=== PATIENT | male | born 1990 | race Two or more races ===

== ENCOUNTER 2018-11-09 07:48 | Observation (INO) | payer SELFPAY ==
[~2018-11-09] VITALS: Ht 170.2 cm; Wt 66.7 kg
[2018-11-09] MEDS ORDERED: ONDANSETRON 2MG/ML, 2ML ONE ×2 (08:24→14:38)
[2018-11-09] MEDS ORDERED: MORPHINE SULFATE 4 MG/ML, 1ML ONE (08:24)
[2018-11-09] MEDS ORDERED: SODIUM CHLORIDE FLUSH 10ML SYR IVF ONE (08:30)
[2018-11-09] MEDS ORDERED: MORPHINE SULFATE 4 MG/ML, 1ML IVPush PRN (08:30)
[2018-11-09] MEDS ORDERED: ONDANSETRON 2MG/ML, 2ML IVPush ONE (08:30)
[2018-11-09 08:36] LABS: BASOPHILS # (AUTO) 0.02 x10^3/uL (0-0.1); BASOPHILS % (AUTO) 0 % (0-1); EOSINOPHILS # (AUTO) 0.12 x10^3/uL (0-0.4); EOSINOPHILS % (AUTO) 2 % (1-7); LYMPHOCYTES # (AUTO) 1.63 x10^3/uL (1-3.4); LYMPHOCYTES % (AUTO) 27 % (22-44); MD NO; MEAN CORPUSCULAR HEMOGLOBIN 30.1 pg (27.5-34.5); MEAN CORPUSCULAR HGB CONC 34.1 g/dL (33.2-36.2); MEAN CORPUSCULAR VOLUME 88.3 fL (81-97); MEAN PLATELET VOLUME 10.3 fL (7.4-10.4); MONOCYTES # (AUTO) 0.31 x10^3/uL (0.2-0.8); MONOCYTES % (AUTO) 5 % (2-9); NEUTROPHILS # (AUTO) 4.05 x10^3/uL (1.8-6.8); NEUTROPHILS % (AUTO) 66 % (42-75); PLATELET COUNT 204 x10^3/uL (130-400); RED BLOOD COUNT 5.07 x10^6/uL (4.38-5.82); RED CELL DISTRIBUTION WIDTH 12.3 % (9.4-14.8)
[2018-11-09 08:47] LABS: ALANINE AMINOTRANSFERASE 28 U/L (12-78); ALBUMIN 4.4 g/dL (3.4-5.0); ANION GAP 7 mmol/L (5-15); CALCIUM 8.7 mg/dL (8.5-10.1); CHLORIDE 110 mmol/L (98-107); CREATININE 1.02 mg/dL (0.7-1.3)
[2018-11-09 08:49] LABS: ALKALINE PHOSPHATASE 112 U/L (45-117); BILIRUBIN,TOTAL 0.4 mg/dL (0.2-1.0); TOTAL PROTEIN 8.1 g/dL (6.4-8.2)
[2018-11-09] MEDS ORDERED: HYDROmorphone 2 MG/ML, 1ML IVPush PRN ×2 (09:30→16:30)
[2018-11-09] MEDS ORDERED: HYDROmorphone 1 MG/ML, 1ML AMP ONE (09:34)
[2018-11-09 09:38] LABS: MICROSCOPIC NOT IND
[2018-11-09 09:46] LABS: CULTURE INDICATED? NO
--- NOTE | 2018-11-09 12:00 | NUR ---
SBAR TO DHAVAL SELF VIA TELEPHONE
[2018-11-09 12:38] VITALS: BP 106/65
[2018-11-09] MEDS ORDERED: BUPIVACAINE/PF 0.5% ONE ×2 (14:21→14:27)
[2018-11-09] MEDS ORDERED: MIDAZOLAM 1 MG/ML, 2ML ONE (14:35)
[2018-11-09] MEDS ORDERED: FENTANYL PF 250 MCG/5ML ONE (14:35)
[2018-11-09] MEDS ORDERED: SUCCINYLCHOLINE 20 MG/ML, 10ML ONE (14:38)
[2018-11-09] MEDS ORDERED: DEXAMETHASONE 4 MG/ML, 1ML ONE (14:38)
[2018-11-09] MEDS ORDERED: CEFAZOLIN 1,000 MG ONE (14:38)
[2018-11-09] MEDS ORDERED: PROPOFOL 10 MG/ML, 20ML ONE (14:38)
[2018-11-09] MEDS ORDERED: ROCURONIUM 10MG/ML,5ML ONE (14:38)
[2018-11-09] MEDS ORDERED: MEPERIDINE/PF 25MG/ML,1ML ONE (16:05)
[2018-11-09] MEDS ORDERED: OXYcodone 5 MG/5 ML ORAL.SOL UDC ONE (16:05)
[2018-11-09] MEDS ORDERED: FENTANYL PF 100 MCG/2ML ONE (16:05)
[2018-11-09] MEDS ORDERED: FENTANYL PF 100 MCG/2ML IV PRN (16:30)
[2018-11-09] MEDS ORDERED: hydrALAzine 20 MG/ML, 1ML IV PRN (16:30)
[2018-11-09] MEDS ORDERED: OXYcodone 5 MG/5 ML ORAL.SOL UDC PO PRN (16:30)
[2018-11-09] MEDS ORDERED: ONDANSETRON 2MG/ML, 2ML IV PRN (16:30)
[2018-11-09] MEDS ORDERED: MEPERIDINE/PF 25MG/0.5ML IVPush PRN (16:30)
[2018-11-09] MEDS ORDERED: LABETALOL 5MG/ML, 20ML IV PRN (16:30)
[2018-11-09] MEDS ORDERED: PROMETHAZINE 25 MG/ML, 1ML IV PRN (16:30)
[2018-11-09] MEDS ORDERED: OXYcodone/APAP 5/325MG TABLET PO PRN (16:30)
[2018-11-09 17:42] VITALS: BP 121/78
[2018-11-09 19:09] VITALS: BP 116/72
[2018-11-09] MEDS ORDERED: OXYC-302 PO (22:19)
== END 2018-11-09 23:30 | disposition home or self-care (01) ==
LOC: ED 08:50 → INTOOBSV 10:40 → EDIP 10:40 → 4NOR 12:52
PROVIDERS: ADMIT Surgery; ATTEND Surgery
DX: K40.30 Unilateral inguinal hernia, with obstruction, without gangrene, not specified as recurrent (principal)
CPT/HCPCS: 36415; 49507; 80053; 81003; 85025; 88302; 96374; 96375; 99284; C1781; G0378; J0330; J0690; J1100; J1170; J2175; J2250; J2405; J2704; J3010; J3490